=== PATIENT | female | born 1990 | race Caucasian/White ===

== ENCOUNTER 2025-01-03 12:30 | Outpatient (CLI) | payer SELFPAY ==
--- NOTE | ~2025-01-03 | US_ITS ---
US thyroid INDICATION: Thyroid nodule TECHNIQUE: Real-time sonographic images of the thyroid gland were obtained. COMPARISON: No prior studies for comparison. FINDINGS: The right thyroid lobe measures 4.4 x 1.1 x 1.2 cm. The left thyroid lobe measures 3.1 x 1 .1 x 0.7 cm. There is normal echotexture and echogenicity throughout the thyroid gland. No discrete n odules identified. Normal vascular flow is present. IMPRESSION: 1. Normal thyroid without discrete nodule or abnormal vascularity. Reviewed, dictated and finalized at location A.
== END 2025-01-03 12:31 | disposition home or self-care (01) ==
LOC: MICIMG 12:36
PROVIDERS: PCP Advanced Practice Midwife; Visit Provider Advanced Practice Midwife
DX: E04.1 Nontoxic single thyroid nodule (principal)
CPT/HCPCS: 76536